=== PATIENT | female | born 1990 | race Caucasian/White ===

== ENCOUNTER 2017-05-25 23:19 | Emergency (ER) | payer BC, OTHER ==
--- NOTE | 2017-05-26 00:05 | EDPHY ---
General Narrative: CHIEF COMPLAINT: Injury to left foot HISTORY OF PRESENT ILLNESS: Patient complains of pain in the left foot. This is located in the left midfoot. She accidentally dropped a chair on it. Mildly painful at 1st. Now moderate. Minimal at rest and worse when she attempts to ambulate or with palpation. No numbness or tingling. No weakness. No pain in the left ankle, toes or calcaneus. No pain in the left calf or knee. No laceration. No other associated complaints or modifying factors. ESTABLISHED ORTHOPEDIST: None REVIEW OF SYSTEMS: Ten systems reviewed and are negative unless otherwise noted in the HPI PAST MEDICAL HISTORY: None PAST SURGICAL HISTORY: None SOCIAL HISTORY: Nonsmoker. Occasional alcohol. FAMILY HISTORY: Noncontributory EXAMINATION General Appearance: Alert, no distress Cardiovascular: Symmetric DP and PT pulses 2+. Brisk cap refill Neurological: A&O, normal proprioception of the left great toe, strength symmetric. No footdrop Skin: Warm and dry, no rash. No ecchymosis. No lacerations or abrasions. Extremities: Mild tenderness of the left midfoot. There is no crepitus. No deformity. No laceration. No tenderness of the left calcaneus. No tenderness of the ankle. Psychiatric: Mood and affect normal DIFFERENTIAL DIAGNOSES: Including but not limited to fracture, sprain, strain, contusion, hematoma MDM: 11:58 p.m. Blunt trauma to the top of the left foot without fracture dislocation on x-ray. She is neurovascular intact. Suspect just contusion or the bruise. She is in no acute distress. She will be placed in a postop shoe. We have discussed ice, elevation and [id number] anti-inflammatories. She is discharged in stable condition fully ambulatory. ED Precautions: Worsening pain. Erythema, edema, cyanosis, pallor, paresthesia or anesthesia. - Diagnostics Imaging Results: Imaging Impressions Foot X-Ray 05/25/17 23:27 Impression: Negative for fracture. - History Smoking Status: Never smoked - Objective Vital Signs: Initial Vital Signs Temperature (C) 97.7 F 05/25/17 23:23 Heart Rate 66 05/25/17 23:23 Respiratory Rate 16 05/25/17 23:23 Blood Pressure 112/78 05/25/17 23:23 O2 Sat (%) 99 05/25/17 23:23 O2 Delivery Mode Room Air Allergies/Adverse Reactions: acetaminophen [From Vicodin] Allergy (Verified 05/25/17 23:23) hydrocodone [From Vicodin] Allergy (Verified 05/25/17 23:23) oxycodone [From Percocet] Allergy (Verified 05/25/17 23:23) Penicillins Allergy (Verified 05/25/17 23:23) Sulfa (Sulfonamide Antibiotics) Allergy (Verified 05/25/17 23:23) tramadol Allergy (Verified 05/25/17 23:23) Home Medications: Medication Instructions Recorded NK [No Known Home Meds] 03/01/14 Departure - Departure Disposition: Home, Routine, Self-Care Clinical Impression: Contusion of foot, left Qualifiers: Encounter type: initial encounter Qualified Code(s): S90.32XA - Contusion of left foot, initial encounter Condition: Good Instructions: Foot Contusion (ED) Additional Instructions: 1. Rest, ice and elevation 2. [id number] anti-inflammatories as needed 3. Postop shoe as discussed as needed 4. Weightbearing as tolerated Referrals: Dominik Calle MD [Medical Doctor] - As per Instructions
[2017-05-26 00:17] VITALS: BP 118/74; PULSE 76; RESP 15; TEMP 98.4; O2SAT 97
== END 2017-05-26 00:17 | disposition home or self-care (01) ==
DX: S90.32XA Contusion of left foot, initial encounter (principal); W20.8XXA Other cause of strike by thrown, projected or falling object, initial encounter